=== PATIENT | male | born 1985 | race Caucasian/White ===

== ENCOUNTER 2019-08-31 15:25 | Emergency (ER) | payer BC, OTHER ==
[2019-08-31 16:20] VITALS: BP 119/74; O2SAT 100
--- NOTE | 2019-08-31 16:24 | ERPHSYRPT ---
- History of Present Illness Time Seen by Provider: 08/31/19 16:22 Source: patient Exam Limitations: no limitations Patient Subjective Stated Complaint: pt here for a fast heart rate for 2 hours now, he states this feels like hes panic attack hes had before, pt drinks lots of caffine Triage Nursing Assessment: pt alert, walked in, resp easy, skin w/d/p.chest clear, moves all ext well Physician History: The patient is a 33-year-old male with a history of self reported anxiety insomnia presents with a chief complaint of palpitations. Onset reported 2 hours ago. He stated he felt as if his heartbeat was irregular he was resting in a chair at home. He denies shortness of breath, chest pain, nausea, vomiting, near syncope, syncope and states that he still with palpitations since he was a teenager. Is no report of sudden in the family age. He reportedly drinks multiple cups of coffee a day in addition to 5 Hour Energy drinks frequently. He has not taken any medication for his symptoms. I witnessed him walk back from registration to his room to be evaluated. Timing/Duration: today Associated Symptoms: No nausea, No vomiting, No abdominal pain, No shortness of breath, No headaches, No syncope Allergies/Adverse Reactions: No Known Drug Allergies Allergy (Unverified 08/31/19 15:39) Home Medications: Omeprazole Magnesium [Prilosec Otc] 20 mg DAILY 08/31/19 [History] Hx Influenza Vaccination/Date Given: No Hx Pneumococcal Vaccination/Date Given: No Immunizations Up to Date: No - Review of Systems Constitutional: No Fever, No Chills Eyes: No Symptoms Ears, Nose, & Throat: No Symptoms Respiratory: No Cough, No Cyanosis, No Dyspnea, No Dyspnea on Exertion (MERCADO), No Stridor, No Wheezing Cardiac: Palpitations, No Chest Pain, No Edema, No Syncope, No Orthopnea Abdominal/Gastrointestinal: No Abdominal Pain, No Nausea, No Vomiting Musculoskeletal: No Symptoms Skin: No Symptoms Neurological: No Symptoms, No Dizziness Psychological: No Symptoms All Other Systems: Reviewed and Negative - Past Medical History Pertinent Past Medical History: Yes Psycho-Social History: Panic Disorder - Past Surgical History Past Surgical History: Yes Gastrointestinal: Cholecystectomy Other Surgical History: tubes in ears - Social History Smoking Status: Never smoker Drug Use: none Patient Lives Alone: No - Nursing Vital Signs Nursing Vital Signs: Initial Vital Signs Pulse Rate 67 08/31/19 15:33 Blood Pressure 132/89 08/31/19 15:33 Pain Scale Pain Intensity 0 - Physical Exam General Appearance: no apparent distress, alert Eye Exam: PERRL/EOMI, eyes nml inspection, No photophobia, No EOM palsy/ anisocoria Ears, Nose, Throat Exam: pharynx normal, No pharyngeal erythema, No tonsillar exudate Neck Exam: normal inspection, non-tender, supple Respiratory Exam: normal breath sounds, lungs clear, airway intact, No chest tenderness, No respiratory distress Cardiovascular Exam: normal heart sounds, normal peripheral pulses, irregular, capillary refill <2 sec, other (Sinus rhythm with an occasional unifocal PVC noted on tele when I was evaluating the patient.), No murmur, No friction rub, No gallop, No pulse deficit Gastrointestinal/Abdomen Exam: soft, normal bowel sounds Back Exam: normal inspection Extremity Exam: normal inspection Neurologic Exam: alert, oriented x 3, cooperative Skin Exam: normal color, warm, dry, rash, No petechiae, No jaundice, No cyanosis SpO2 Interpretation: normal SpO2: 100 O2 Delivery: Room Air - Course Nursing assessment & vital signs reviewed: Yes EKG Interpreted by Me: RATE, Sinus Rhythm, NORMAL AXIS, NORMAL INTERVALS, NORMAL QRS, NORMAL ST-T, Other (Sinus rhythm with an occasional unifocal PVC) Ordered Tests: Active Orders 24 hr Category Date Time Status Edi Manager STAT Care 08/31/19 16:23 Active EKG-ER Only STAT Care 08/31/19 16:22 Active BMP Stat Lab 08/31/19 16:30 Completed CBC W DIFF Stat Lab 08/31/19 16:30 Completed TROPONIN Stat Lab 08/31/19 16:30 Completed TSH, 3RD Generation Stat Lab 08/31/19 16:30 Completed Holter Monitor ONCE RT 08/31/19 17:43 Active Lab/Rad Data: Laboratory Result Diagrams 08/31/19 16:30 08/31/19 16:30 Laboratory Results 08/31/19 08/31/19 08/31/19 Range/Units 16:30 16:30 16:30 WBC 13.0 H (4.0-10.5) K/mm3 RBC 4.73 (4.1-5.6) M/mm3 Hgb 13.9 (12.5-18.0) gm/dl Hct 41.9 L (42-50) % MCV 88.6 (78-100) fl MCH 29.4 (26-32) pg MCHC 33.2 (32-36) g/dl RDW 13.3 (11.5-14.0) % Plt Count 308 (150-450) K/mm3 MPV 10.1 H (6-9.5) fl Gran % 78.0 H (36.0-66.0) % Eos # (Auto) 0.10 (0-0.5) Absolute Lymphs (auto) 1.81 (1.0-4.6) Absolute Monos (auto) 0.92 (0.0-1.3) Lymphocytes % 13.9 L (24.0-44.0) % Monocytes % 7.1 (0.0-12.0) % Eosinophils % 0.8 (0.00-5.0) % Basophils % 0.2 (0.0-0.4) % Absolute Granulocytes 10.17 H (1.4-6.9) Basophils # 0.03 (0-0.4) Sodium 141 (137-145) mmol/L Potassium 4.1 (3.5-5.1) mmol/L Chloride 104 (98-107) mmol/L Carbon Dioxide 31 H (22-30) mmol/L Anion Gap 9.5 (5-15) MEQ/L BUN 17 (9-20) mg/dL Creatinine 0.80 (0.66-1.25) mg/dL Estimated GFR > 60.0 ML/MIN Glucose 107 H (74-106) mg/dL Calcium 10.0 (8.4-10.2) mg/dL Troponin I < 0.012 (0.000-0.034) ng/mL TSH 3rd Generation 1.740 (0.47-4.68) mIU/L - Progress Progress: improved Progress Note: 08/31/19 16:54 The patient refused his CXR. I spoke to him about this and he was worried about the cost of the imaging. I was ok with deferring imaging at this time. 08/31/19 18:49 The patient is reassessed upon he was feeling better. We discussed his need to limit caffeine from his diet in addition to his five-hour energy. I attempted to have a Holter monitor placed on the patient; however, the Holter monitor was unable to function correctly in the ED. Ultimately the tech had me write a written order for a 24-hr Holter. The plan is for the patient to return to the hospital tomorrow to have the holter monitor placed. He agreed with and verbally understood the discharge plan. Counseled pt/family regarding: lab results, diagnosis, need for follow-up - Departure Departure Disposition: Home Clinical Impression: Palpitations, PVC (premature ventricular contraction) Condition: Stable Critical Care Time: No Referrals: [facility]OSPITAL,'[facility] [Primary Care Provider] - Instructions: Ambulatory Cardiac Monitoring (DC), Palpitations (DC) Additional Instructions: Please follow-up with your primary care provider as soon as possible. Please bring the Holter Monitor back as instructed and your results should be sent to your primary care provider. Please avoid caffeine intake and consuming 5 Hour Energy drinks.
[2019-08-31 16:55] VITALS: PULSE 67
[2019-08-31 17:00] LABS: Absolute Neutrophil Ct (ANC) 10.17 (1.4-6.9); BASOPHIL % 0.2 % (0.0-0.4); Basophil (Absolute #) 0.03 (0-0.4); Eosinophil % 0.8 % (0.00-5.0); Hematocrit 41.9 % (42-50); Hemoglobin 13.9 gm/dl (12.5-18.0); Lymphocyte (Absolute #) 1.81 (1.0-4.6); Lymphocytes % 13.9 % (24.0-44.0); Mean Cell Volume 88.6 fl (78-100); Mean Corpuscular Hemoglobin 29.4 pg (26-32); Mean Corpuscular Hgb Concent. 33.2 g/dl (32-36); Mean Platelet Volume 10.1 fl (6-9.5); Monocyte (Absolute #) 0.92 (0.0-1.3); Monocytes % 7.1 % (0.0-12.0); Platelet Count 308 K/mm3 (150-450); Red Blood Count 4.73 M/mm3 (4.1-5.6); Red Cell Distribution Width 13.3 % (11.5-14.0)
[2019-08-31 17:51] LABS: ANION GAP 9.5 MEQ/L (5-15); BLOOD UREA NITROGEN 17 mg/dL (9-20); CHLORIDE 104 mmol/L (98-107); Carbon Dioxide 31 mmol/L (22-30); Glucose 107 mg/dL (74-106); Potassium 4.1 mmol/L (3.5-5.1); SODIUM 141 mmol/L (137-145)
== END 2019-08-31 18:48 | disposition home or self-care (01) ==
LOC: ED 15:25
DX: R00.2 Palpitations (principal); I49.3 Ventricular premature depolarization
CPT/HCPCS: 36415; 80048; 84443; 84484; 85025; 93005; 93041; 99284